=== PATIENT | female | born 1985 | race Caucasian/White ===

== ENCOUNTER 2019-10-03 06:49 | Emergency (ER) | payer OTHER ==
[~2019-10-03] VITALS: Ht 160 cm; Wt 71.7 kg
[2019-10-03 06:51] VITALS: BP 124/70
[2019-10-03] MEDS ORDERED: CLARITIN10 M3 PO (06:56)
[2019-10-03] MEDS ORDERED: ERYTHROMYCIN E3.5 G3 OPHTHALMIC (07:39)
== END 2019-10-03 07:51 | disposition home or self-care (01) ==
LOC: ER → EDBD 06:49 → ER 07:51
DX: Z77.098 Contact with and (suspected) exposure to other hazardous, chiefly nonmedicinal, chemicals (principal)

== ENCOUNTER 2021-03-07 05:21 | Emergency (ER) | payer OTHER ==
[~2021-03-07] VITALS: Ht 160 cm; Wt 88.5 kg
[~2021-03-07 05:21] MED LIST: CLARITIN10 M3 PO; ERYTHROMYCIN E3.5 G3 OPHTHALMIC
[2021-03-07] MEDS ORDERED: ACETAMINOPHEN PO (06:02)
[2021-03-07] MEDS ORDERED: IBUPROFEN200 M1 PO (06:03)
[2021-03-07 07:19] VITALS: BP 135/88
== END 2021-03-07 07:15 | disposition home or self-care (01) ==
LOC: ER 05:21
DX: R50.9 Fever, unspecified (principal); Z20.822 Contact with and (suspected) exposure to COVID-19; J02.9 Acute pharyngitis, unspecified; R09.89 Other specified symptoms and signs involving the circulatory and respiratory systems

== ENCOUNTER 2021-04-24 21:18 | Emergency (ER) | payer OTHER ==
[~2021-04-24] VITALS: Ht 160 cm; Wt 90.7 kg
[~2021-04-24 21:18] MED LIST changes: +ACETAMINOPHEN PO; +IBUPROFEN200 M1 PO
[2021-04-24 21:55] LABS: URINE BILIRUBIN NEGATIVE (Negative); URINE BLOOD NEGATIVE (Negative); URINE CLARITY SL CLOUDY; URINE COLOR YELLOW; URINE GLUCOSE-RANDOM* NEGATIVE (Negative); URINE KETONES TRACE (Negative); URINE LEUKOCYTES-REFLEX TRACE (Negative); URINE PROTEIN (DIPSTICK) NEGATIVE (Negative)
[2021-04-24 21:59] LABS: URINE NITRITE-REFLEX POSITIVE (Negative)
[2021-04-24 22:08] LABS: BACTERIA-REFLEX 1-9 Few /HPF (None Seen); CASTS None Seen /LPF (None Seen); CRYSTALS None Seen /LPF (None Seen); MUCUS 0-3 Light strn/LPF (None Seen); SQUAMOUS 0-3 Few /LPF (0-3); URINE RBC 1-2 Rare /HPF (NONE SEEN); URINE WBC-REFLEX 0-5 Rare /HPF (0-5)
[2021-04-24] MEDS ORDERED: MACROBID 100 M100 M1 PO (23:25)
[2021-04-24 23:32] VITALS: BP 129/76
== END 2021-04-24 23:35 | disposition home or self-care (01) ==
LOC: ER 21:18
PROVIDERS: Emergency Medicine
DX: S39.012A Strain of muscle, fascia and tendon of lower back, initial encounter (principal); M25.561 Pain in right knee; J45.909 Unspecified asthma, uncomplicated; V87.7XXA Person injured in collision between other specified motor vehicles (traffic), initial encounter; Y93.89 Activity, other specified; Y92.413 State road as the place of occurrence of the external cause; Y99.8 Other external cause status